=== PATIENT | female | born 1985 | race African-American/Black ===

== ENCOUNTER 2016-11-17 06:05 | Emergency (ER) | payer BC, OTHER ==
[2016-11-17] MEDS ORDERED: LIDOCAINE 1% INJ-PF (10 MG/ML) 30 ML SDV INJ ONE (08:02)
--- NOTE | 2016-11-17 08:29 | ER Document Report ---
HPI - HPI Pain Level: 4 Notes: Patient is a 31-year-old female presents to the ED complaining of left fifth digit pain of the foot. Patient denies any injury. Patient has a history of diabetes. She denies any numbness or tingling. Patient has not noticed any discharge. She still eating and drinking without any problems. She has not taken any medicines for symptoms. Pt able to ambulate without difficulty, but does have discomfort. The pain does not radiate and is sore/sharp. Any headaches, fever, chest pain, palpitations, sore throat, cough, wheeze, abdominal pain, nausea/vomiting, dysuria. - ROS Notes: REVIEW OF SYSTEMS: CONSTITUTIONAL : Denies fever, chills, or sweats. Denies recent illness. EENT: Denies eye, ear, throat, or mouth pain or symptoms. Denies nasal or sinus congestion or discharge. Denies throat, tongue, or mouth swelling or difficulty swallowing. CARDIOVASCULAR: Denies chest pain. Denies palpitations or racing or irregular heart beat. Denies ankle edema. RESPIRATORY: Denies cough, cold, or chest congestion. Denies shortness of breath, difficulty breathing, or wheezing. GASTROINTESTINAL: Denies abdominal pain or distention. Denies nausea, vomiting , or diarrhea. Denies blood in vomitus, stools, or per rectum. Denies black, tarry stools. Denies constipation. GENITOURINARY: Denies difficulty urinating, painful urination, burning, frequency, blood in urine, or discharge. MUSCULOSKELETAL: see hpi SKIN: Denies rash, lesions or sores. NEUROLOGICAL: Denies confusion or altered mental status. Denies passing out or loss of consciousness. Denies dizziness or lightheadedness. Denies headache. Denies weakness or paralysis or loss of use of either side. Denies problems with gait or speech. Denies sensory loss, numbness, or tingling. Denies seizures. ALL OTHER SYSTEMS REVIEWED AND NEGATIVE. Dictation was performed using [employer] voice recognition software - REPRODUCTIVE Reproductive: REPORTS: : - DERM Skin Color: Normal Past Medical History - Social History Smoking Status: Unknown if Ever Smoked Family History: Reviewed & Not Pertinent Patient has suicidal ideation: No Patient has homicidal ideation: No Pulmonary Medical History: Denies: Hx Tuberculosis Endocrine Medical History: Reports: Hx Diabetes Mellitus Type 1 Renal/ Medical History: Denies: Hx Peritoneal Dialysis Psychiatric Medical History: Denies: Hx Dementia Traumatic Medical History: Reports: Hx Fractures Past Surgical History: Reports: Hx Gynecologic Surgery - D&C - Immunizations Immunizations up to date: Yes Hx Diphtheria, Pertussis, Tetanus Vaccination: No Vertical Provider Document - CONSTITUTIONAL Notes: PHYSICAL EXAMINATION: GENERAL: Well-appearing, well-nourished and in no acute distress. LUNGS: Breath sounds clear to auscultation bilaterally and equal. No wheezes rales or rhonchi. HEART: Regular rate and rhythm without murmurs, rubs, gallops. ABDOMEN: Soft, nontender, nondistended abdomen. No guarding, no rebound. No masses appreciated. Normal bowel sounds present. No CVA tenderness bilaterally. Musculoskeletal: Lt foot/digits: FROM to passive/active. Strength 5+/5. + tenderness to the left lateral 5th digit of left foot. Extremities: No cyanosis, clubbing, or edema b/l. Peripheral pulses 2+. Capillary refill less than 3 seconds. NEUROLOGICAL: Cranial nerves grossly intact. Normal speech, normal gait. Normal sensory, motor exams PSYCH: Normal mood, normal affect. SKIN: + mild abscess, erythema to the left lateral 5th digit of left foot. No discharge, streaks, or surrounding induration. - INFECTION CONTROL TRAVEL OUTSIDE OF THE [place] IN LAST 30 DAYS: No - RESPIRATORY O2 Sat by Pulse Oximetry: 96 Course - Re-evaluation Re-evalutation: 11/17/16 08:28 Patient afebrile, well-hydrated, 31-year-old female sent to the ED with a paronychia to her left fifth digit of the left foot. Vitals are stable PE otherwise unremarkable. Simple I will send her home with I&D performed successfully without complications. doxycycline twice a day for 10 days. Conservative measures otherwise for her foot. Recheck with her PCM in 2-3 days. Return to the ED with any worsening/concerning symptoms as reviewed. Patient in agreement. - Vital Signs Vital signs: Temp Pulse Resp BP Pulse Ox 97.7 F 66 13 120/103 H 96 11/17/16 06:17 11/17/16 06:17 11/17/16 06:17 11/17/16 06:17 11/17/16 06:17 Procedures - Incision and Drainage Left Foot 5th digit Time completed: 08:45 Type: Simple Anesthetic type: 1% Lidocaine mL's of anesthetic: 3 Blade size: 11 I&D procedure: Shurclens applied, Sterile dressing applied Incision Method: Incision made by scalpel Amount/type of drainage: scant blood/pustular material Notes: 11/17/16 08:30 No packing needed Small flaca made in the paronychia. wound cx obtained Discharge - Discharge Clinical Impression: Paronychia Qualifiers: Laterality: left Qualified Code(s): L03.012 - Cellulitis of left finger Condition: Stable Disposition: HOME, SELF-CARE Additional Instructions: Do not shower or bathe for 24 hours. After 24 hours she may shower but no submersion of the wound under water. Keep the original dressing on the wound for 24 hours unless the drainage stops through. Change the dressing daily thereafter and use a small amount of triple antibiotic ointment over the open wound. Epsom salt soaks. Recheck with your PCM in 2-3 days. Monitor for any signs of worsening pain or redness, streaks, and/or fever. Return to the ED if noticing any of the above symptoms. Return to the ED with any worsening symptoms and/or development of fever, headache, chest pain, palpitations, syncope, shortness of breath, trouble breathing, abdominal pain, n/v/d, or other worsening symptoms that are concerning to you. Prescriptions: Doxycycline Hyclate 100 mg PO BID #20 capsule Forms: Elevated Blood Pressure Referrals: SAIRA RIVERA DPM [ACTIVE STAFF] - Follow up as needed
--- NOTE | 2016-11-17 08:43 | RADIOLOGY REPORT (SQ) ---
EXAM DESCRIPTION: FOOT LEFT COMPLETE COMPLETED DATE/TIME: 11/17/2016 8:17 am REASON FOR STUDY: 5th dig pain COMPARISON: None. NUMBER OF VIEWS: Three views. TECHNIQUE: AP, lateral and oblique radiographic images acquired of the left foot. LIMITATIONS: None. FINDINGS: MINERALIZATION: Normal. BONES: No acute fracture or dislocation. No worrisome bone lesions. Moderate size calcaneal spur at the insertion of the plantar aponeurosis. JOINTS: No effusions. SOFT TISSUES: No soft tissue swelling. No foreign body. OTHER: No other significant finding. IMPRESSION: No radiographic evidence of acute injury. TECHNICAL DOCUMENTATION: JOB ID: [id number] [employer]- All Rights Reserved
[2016-11-17 09:04] VITALS: BP 112/68
== END 2016-11-17 09:00 | disposition home or self-care (01) ==
LOC: ER 06:05
PROC: 0H9NXZZ Drainage of Left Foot Skin, External Approach (ICD-10-PCS; principal; 2016-11-17)
DX: L03.012 Cellulitis of left finger (principal); M79.645 Pain in left finger(s)
CPT/HCPCS: 99283; 87070; 87205; 87077; 87186; 73630; 10060; J3490